=== PATIENT | female | born 1995 | race Caucasian/White ===

== ENCOUNTER 2025-05-27 09:11 | Inpatient (IN) | payer BC, OTHER ==
[~2025-05-27] VITALS: Ht 157.5 cm; Wt 66.4 kg
--- NOTE | 2025-05-27 10:22 | ED.PDOC ---
GI ASSESSMENT HPI Comments This is a 29 year-old female who presents to the ED via wheelchair with a chief complaint of N/V as of 1500 yesterday. Per sister, patient drank vodka X2 days ago and has been N/V since, with an inability to ambulate or communicate properly. Patient has no further complaints at this time and otherwise denies further associated symptoms of abdominal pain, diarrhea, fever, or chills. Chief Complaint: Nausea/Vomiting Time Seen by MD: 09:43 Reviewed Notes: Medications, Allergies Allergies: Coded Allergies: NO KNOWN ALLERGIES (Unverified , 05/27/25) Information Source: Patient, Relative (Sibling) Mode of Arrival: Wheelchair Timing: Days Duration: Since onset Severity: Moderate Recent: Ingestion of ETOH Associated sign and symptoms: Nausea, Vomiting Past Medical History PAST MEDICAL HISTORY: Denies Surgical History: Tubal Ligation PUSHER RUNNER History: No Pertinent PUSHER RUNNER History Family History Family History: Unknown Social History Smoker: Non-Smoker Alcohol: Heavy Drugs: Denies Drug Use Lives In: Home Constitutional: denies: chills, diaphoresis, fatigue, fever, malaise, sweats, weakness, others EENTM: denies: blurred vision, double vision, ear bleeding, ear discharge, ear drainage, ear pain, ear ringing, eye pain, eye redness, hearing loss, mouth pain, mouth swelling, nasal discharge, nose bleeding, nose congestion, nose pain, photophobia, tearing, throat pain, throat swelling, voice changes, others Respiratory: denies: cough, hemoptysis, orthopnea, SOB at rest, shortness of breath, SOB with excertion, stridor, wheezing, others Cardiovascular: denies: chest pain, dizzy spells, diaphoresis, Dyspnea on exertion, edema, irregular heart beat, left arm pain, lightheadedness, palpitat ions, PND, syncope, others Gastrointestinal: reports: nausea, vomiting; denies: abdomen distended, abdominal pain, blood streaked bowels, constipated, diarrhea, dysphagia, difficulty swallowing, hematemesis, melena, poor appetite, poor fluid intake, rectal bleeding, rectal pain, others Genitourinary: denies: abnormal vagina bleeding, burning, dyspareunia, dysuria, flank pain, frequency, hematuria, incontinence, pain, , vagina discharge, urgency, others Neurological: denies: dizziness, fainting, headache, left sided numbness, left sided weakness, numbness, paresthesia, pre-existing deficit, right sided numbness, right sided weakness, seizure, speech problems, tingling, tremors, weakness, others Musculoskeletal: denies: back pain, gout, joint pain, joint swelling, muscle pain, muscle stiffness, neck pain, others Integumetry: denies: bruises, change in color, change in hair/nails, dryness, laceration, lesions, lumps, rash, wounds, others Allergic/Immunocompromised: denies: Difficulty Healing, Frequent Infections, Hives, Itching, others Hematologic/Lymphatic: denies: anemia, blood clots, easy bleeding, easy bruising, swollen glands, others Endocrine: denies: excessive hunger, excessive sweating, excessive thirst, excessive urination, flushing, intolerance to cold, intolerance to heat, unexplained weight gain, unexplained weight loss, others Psychiatric: denies: anxiety, bipolar disorder, depression, hopeless, panic disorder, schizophrenia, sleepless, suicidal, others All Other Systems: Reviewed and Negative Physical Exam General Appearance: Moderate Distress HEENT: Normal ENT Inspection, Pharynx Normal, TMs Normal Neck: Full Range of Motion, Non-Tender, Normal, Normal Inspection Respiratory: Chest Non-Tender, Lungs Clear, No Accessory Muscle Use, No Respiratory Distress, Normal Breath Sounds Cardiovascular: No Edema, No JVD, No Murmur, No Gallop, Normal Peripheral Pulses, Regular Rate/Rhythm Breast Exam: Deferred Gastrointestinal: No Organomegaly, Non Tender, No Pulsatile Mass, Normal Bowel Sounds, Soft Genitalia: Deferred Pelvic: Deferred Rectal: Deferred Extremities: No calf tenderness, Normal capillary refill, Normal inspection, Normal range of motion, Non-tender, No pedal edema Musculoskeletal : Apperance: Normal Neurologic: Alert, field nurse II-XII nml as Tested, No Motor Deficits, Normal Affect, Normal Mood, No Sensory Deficits Cerebellar Function: Normal Reflexes: Normal Skin: Dry, Normal Color, Warm Peripheral Pulses: 3+ Radial (R), 3+ Radial (L) Lymphatic: No Adenopathy Was a procedure done? Was a procedure done?: No GI differential Dx Differential Diagnosis: Constipation, Diverticular disease, Esophagitis, Gastritis/PUD, Gastroenteritis, Inflammatory BD, UTI, Dehydration, Food Poisoning, Bacterial, Parasitic, Viral X-Ray, Labs, Meds, VS Vital Signs Date Time Temp Pulse Resp B/P (MAP) Pulse Ox O2 Delivery O2 Flow Rate FiO2 05/27/25 11:08 98.0 96 18 102/62 (75) 96 98.0 05/27/25 11:08 96 18 96 Room Air 05/27/25 09:13 98.4 98 16 107/79 100 98.4 Lab Test 05/27/25 11:30 Range/Units White Blood Count 19.1 H 4.4-10.8 10^3/uL Red Blood Count 5.20 4.0-5.20 10^6/uL Hemoglobin 15.8 12.2-16.2 g/dL Hematocrit 46.3 H 36.0-46.0 % Mean Corpuscular Volume 89.0 80.0-100.0 fL Mean Corpuscular Hemoglobin 30.3 28.0-32.0 pg Mean Corpuscular Hemoglobin Concent 34.0 32.0-36.0 g/dL Red Cell Distribution Width 14.0 11.8-14.3 % Platelet Count 466 H 140-450 10^3/uL Mean Platelet Volume 7.2 6.9-10.8 fL Neutrophils (%) (Auto) 90.9 H 37.0-80.0 % Lymphocytes (%) (Auto) 3.5 L 10.0-50.0 % Monocytes (%) (Auto) 5.3 0.0-12.0 % Eosinophils (%) (Auto) 0.0 0.0-7.0 % Basophils (%) (Auto) 0.3 0.0-2.0 % Neutrophils # (Auto) 17.3 H 1.6-8.6 10 ^3/uL Lymphocytes # (Auto) 0.7 0.4-5.4 10 ^3/uL Monocytes # (Auto) 1.0 0-1.3 10 ^3/uL Eosinophils # (Auto) 0 0-0.8 10 ^3/uL Basophils # (Auto) 0.1 0-0.2 10 ^3/uL Nucleated Red Blood Cells 0.0 % Plasma/Serum Blood Alcohol Pending Current Medications Medications (Trade) Dose Ordered Sig/Ag Route Start Time Stop Time Status Last Admin Sodium Chloride 1,000 ml @ 1,000 mls/hr Q1H ONCE IV 05/27/25 11:30 10/26/25 12:29 05/27/25 11:21 Ondansetron HCl (Zofran) 4 mg ONCE ONCE IV 05/27/25 11:30 05/27/25 11:31 DC 05/27/25 11:21 Patient alert. Came in because of generalized weakness. Vitals stable. Patient comfortable. WBC elevated pain Establish intravenous access. Was given fluids. Was given Zofran. Possible sepsis. Possible urosepsis. Was given Rocephin. Was given Flagyl. CT of the abdomen. Explained to the patient. Continue monitoring. Time of 1ST Reevaluation: 11:22 Reevaluation 1ST: Unchanged Patient Education/Counseling: Diagnosis, Treatment Family Education/Counseling: No Family Present SEPSIS Sepsis Screen Date sepsis recognized/suspect: May 27, 2025 Time Sepsis recognized/suspect: 914 Recent Procedure: No On Antibiotic Therapy: No Respiratory Rate >20: No Heart Rate >90: Yes Temp<36 C (96.8 F) or >38.3 C: No SBP <90 or MAP <65 mmHG: No New Acute Mental Status Change: No Is the patient on CPAP, BIPAP,: No Physician Orders Sodium Chloride 0.9% (05/27/25 11:30) Blood Alcohol (05/27/25 11:24) Vital Signs Date Time Temp Pulse Resp B/P (MAP) Pulse Ox O2 Delivery O2 Flow Rate FiO2 05/27/25 11:08 98.0 96 18 102/62 (75) 96 98.0 05/27/25 11:08 96 18 96 Room Air 05/27/25 09:13 98.4 98 16 107/79 100 98.4 Laboratory Tests Test 05/27/25 11:30 White Blood Count 19.1 10^3/uL (4.4-10.8) H Medications Medications Dose Ordered Sig/Ag Route Start Time Stop Time Status Last Admin Dose Admin Ondansetron HCl 4 mg ONCE ONCE IV 05/27/25 11:30 05/27/25 11:31 DC 05/27/25 11:21 Sodium Chloride 1,000 ml @ 1,000 mls/hr Q1H ONCE IV 05/27/25 11:30 05/27/25 12:29 05/27/25 11:21 Departure 1 Departure Time of Disposition: 12:04 Impression: Primary Impression: Sepsis, unspecified organism Qualified Codes: A41.9 - Sepsis, unspecified organism Disposition: ADMITTED INPATIENT Admit to: Med Surg Condition: Guarded Critical Care Note Critical Care Time?: Yes (90 min-critical care time only) Stability Stability form required: No Heart Score Heart Score: Heart Score Response (Comments) Value History N/A 0 EKG N/A 0 Age N/A 0 Risk Factors N/A 0 Troponin N/A 0 Total 0 I personally scribed for KATRIN MEJÍA MD ([email or web address]) on 05/27/25 at 10:22. Electronically submitted by Haydee Butts ([facility]). KATRIN MEJÍA MD May 27, 2025 10:22
[2025-05-27] MEDS: ONDANSETRON HCL 4 MG/2 ML VIAL IV ONE (11:21)
[2025-05-27] MEDS: SODIUM CHLORIDE 0.9% 1,000 ML IV ONE ×2 (11:21→15:12)
[2025-05-27 11:55] LABS: Hematocrit 46.3 % (36.0-46.0); Hemoglobin 15.8 g/dL (12.2-16.2); Mean Corpuscular Hemoglobin 30.3 pg (28.0-32.0); Mean Corpuscular Volume 89.0 fL (80.0-100.0); Nucleated Red Blood Cells % 0.0 %
[2025-05-27 12:16] LABS: Chloride 100 mmol/L (98-107); Potassium 3.6 mmol/L (3.5-5.1); Sodium 139 mmol/L (136-145)
[2025-05-27 12:17] LABS: Anion Gap 16 (5-15); Calcium 9.9 mg/dL (8.7-10.4); Carbon Dioxide 23 mmol/L (20-31)
[2025-05-27 12:22] LABS: BUN/Creatinine Ratio 7.5 (10.0-20.0); Glucose 85 mg/dL (74-106)
[2025-05-27 12:24] LABS: Blood Urea Nitrogen 6 mg/dL (9-23)
--- NOTE | 2025-05-27 13:04 | DVH ---
CT CT AB PEL WO CON-NO ORAL OR IV INDICATION: colitis EXAM DATE: 05/27/2025 12:21 PM COMPARISON: None RADIATION DOSE: CTDIvol: 6 mGy, DLP: 289 mGy*cm PROCEDURE: Helical CT images were obtained of the abdomen and pelvis without IV contrast Sagittal and coronal reconstructions are provided. ORAL CONTRAST: None. ADDITIONAL IMAGES / REFORMATS: None All C T scans at this medical facility are performed using dose modulation techniques as appropriate to a p erformed exam including the following: Automated exposure control was utilized; adjustment of the MA and/or KV according to patient size; and use of iterative reconstruction technique. FINDINGS: LUNG BASE: Normal. LIVER: Normal. GALLBLADDER AND BILIARY TREE: Gallstones are noted in the gallbladder. No intra- or extrahepatic bili teto ductal dilation. PANCREAS: Normal. SPLEEN: Normal. BOWEL: Normal. Normal appendix. ADRENALS: Normal. KIDNEYS AND URETER: Normal. BLADDER: Normal. REPRODUCTIVE ORGANS: Normal. LYMPH NODES:No lymphadenopathy. PERITONEUM: No ascites or free air. No other fluid collection. VESSELS: Scattered atherosclerotic calcifications are noted. RETROPERITONEUM: Normal. ABDOMINAL WALL: Normal. BONES: Scattered osseous degenerative changes are noted. IMPRESSION: No acute intraabdominal abnormality.
[2025-05-27] MEDS ORDERED: ACETAMINOPHEN 325 MG TAB PO PRN (14:15)
--- NOTE | 2025-05-27 14:21 | DVHHPRES ---
History of Present Illness Resident Creating Document: EILEEN AGUILAR History of Present Illness Latrice Pool is a 29-year-old female patient who presents to the ED with chief complaint of nausea nonbloody vomiting with clear emesis, sore throat, abdominal pain in epigastrium and right upper quadrant, fever, chills, clamminess in dull achy epigastric chest pain, symptoms started 48 hours before her admission, prompting her visit to ED due to inability of eating for this amount of time. Patient reports the day her symptoms started she did drink two mixed drinks with vodka. Patient also reports to be on Zepbound for the past six months, she has lost intentionally 45 lb with treatment. Denies any other associated symptom. Past medical history: Preeclampsia, obesity on Zepbound Surgical history: Bilateral tubal ligation Family history: Heart disease in mother, grandmothers and aunts breast cancer. Social history: Lives in [place] with family (next of kin has been). Occasional alcohol. Denies current tobacco, alcohol and other drug abuse Allergies: Denies Home medication: Zepbound Patient seen and examined at bedside. Currently has no new complaints. Patient admitted to telemetry for further evaluation Past Medical History Per HPI Past Surgical History Per HPI Family History Per HPI Past Social History Per HPI Review of Systems Review of Systems Per HPI Allergies: Coded Allergies: NO KNOWN ALLERGIES (Unverified , 05/27/25) Exam Vital Signs Vital Signs Date Time Temp Pulse Resp B/P (MAP) Pulse Ox O2 Delivery O2 Flow Rate FiO2 05/27/25 13:47 98.2 58 16 97/68 (78) 95 98.2 05/27/25 11:08 Room Air Exam Patient lying in bed, in no acute distress General: Lucid, afebrile, mucosae are moist Cardiovascular: Normal S1 and S2. No murmurs, gallops or rubs Respiratory: Normal ventilation mechanics. Clear lung sounds on auscultation Abdomen: Soft, diffuse tenderness, exquisite on epigastrium and right upper quadrant, negative Li's sign and McBurney sign, no organomegaly, normal bowel sounds MSK/skin: Mobilizes 4 limbs. Skin is dry and warm Neurological: Oriented in 3 spheres. No motor no sensitive deficits. Pupils are isocoric and reactive Labs/Xrays Labs Test 05/27/25 12:20 05/27/25 11:30 Range/Units Lactic Acid Level 1.1 0.4-2.0 mmol/L White Blood Count 19.1 H 4.4-10.8 10^3/uL Red Blood Count 5.20 4.0-5.20 10^6/uL Hemoglobin 15.8 12.2-16.2 g/dL Hematocrit 46.3 H 36.0-46.0 % Mean Corpuscular Volume 89.0 80.0-100.0 fL Mean Corpuscular Hemoglobin 30.3 28.0-32.0 pg Mean Corpuscular Hemoglobin Concent 34.0 32.0-36.0 g/dL Red Cell Distribution Width 14.0 11.8-14.3 % Platelet Count 466 H 140-450 10^3/uL Mean Platelet Volume 7.2 6.9-10.8 fL Neutrophils (%) (Auto) 90.9 H 37.0-80.0 % Lymphocytes (%) (Auto) 3.5 L 10.0-50.0 % Monocytes (%) (Auto) 5.3 0.0-12.0 % Eosinophils (%) (Auto) 0.0 0.0-7.0 % Basophils (%) (Auto) 0.3 0.0-2.0 % Neutrophils # (Auto) 17.3 H 1.6-8.6 10 ^3/uL Lymphocytes # (Auto) 0.7 0.4-5.4 10 ^3/uL Monocytes # (Auto) 1.0 0-1.3 10 ^3/uL Eosinophils # (Auto) 0 0-0.8 10 ^3/uL Basophils # (Auto) 0.1 0-0.2 10 ^3/uL Nucleated Red Blood Cells 0.0 % Sodium Level 139 136-145 mmol/L Potassium Level 3.6 3.5-5.1 mmol/L Chloride Level 100 98-107 mmol/L Carbon Dioxide Level 23 20-31 mmol/L Anion Gap 16 H 5-15 Blood Urea Nitrogen 6 L 9-23 mg/dL Creatinine 0.80 0.550-1.02 mg/dL Glomerular Filtration Rate Calc 101 >90 mL/min BUN/Creatinine Ratio 7.5 L 10.0-20.0 Serum Glucose 85 74-106 mg/dL Calcium Level 9.9 8.7-10.4 mg/dL Plasma/Serum Blood Alcohol < 3.0 <10 mg/dL SEPSIS Sepsis Screen Date sepsis recognized/suspect: May 27, 2025 Time Sepsis recognized/suspect: 914 Recent Procedure: No On Antibiotic Therapy: No Respiratory Rate >20: No Heart Rate >90: Yes Temp<36 C (96.8 F) or >38.3 C: No SBP <90 or MAP <65 mmHG: No New Acute Mental Status Change: No Is the patient on CPAP, BIPAP,: No Physician Orders Blood Culture (05/27/25 12:05) Ct Ab Pel Wo Con-No Oral Or Iv (05/27/25 12:05) Urinalysis (05/27/25 12:07) Chest Portable (05/27/25 13:56) Admit (05/27/25 14:10) Code Status (05/27/25 14:10) Acetaminophen Tablet (Tylenol Tablet) (05/27/25 14:15) Ondansetron Hcl (Zofran) (05/27/25 14:15) Complete Blood Count (05/28/25 04:00) Comprehensive Metabolic Panel (05/28/25 04:00) Npo (Nothing By Mouth) Diet (05/27/25 Dinner) Echo 2d Mode Cardiac Dop (05/27/25 14:10) Morphine Sulfate Injection (05/27/25 14:15) Enoxaparin Sodium (Lovenox) (05/28/25 10:00) Oxygen By Nasal Cannula (05/27/25 14:10) Stat Ekg For Chest Pain (05/27/25 14:10) Notify Md Of Changes From Base (05/27/25 14:10) Long Chain Dyeing Machine Operator For 24 Hours (05/27/25 14:10) Emergency Dysrhythmia Protocol (05/27/25 14:10) Rhythm Strips Once Every Shift (05/27/25 14:10) Sodium Chloride 0.9% (05/27/25 14:15) Sodium Chloride 0.9% (05/27/25 14:15) Ceftriaxone 1gm/50ml (Rocephin) (05/28/25 09:00) Metronidazole 500mg/100ml (Flagyl 500mg/ (05/27/25 22:00) Hepatic Panel (05/27/25 14:10) Acute Hepatitis Panel (05/27/25 14:10) Vitamin D, 25-Hydroxy (05/27/25 14:10) Vitamin B12 (05/27/25 14:10) Urinalysis (05/27/25 14:10) Thyroid Stimulating Hormone (05/27/25 14:10) PTPTT (05/27/25 14:10) Phosphorus (05/27/25 14:10) Magnesium (05/27/25 14:10) Lipid Panel (05/27/25 14:10) Lipase (05/27/25 14:10) Lactic Acid W/ Reflex Order (05/27/25 14:10) Hemoglobin A1c (05/27/25 14:10) Drug Screen (05/27/25 14:10) C-Reactive Protein (05/27/25 14:10) Ammonia (05/27/25 14:10) Beta-Hydroxybutyrate (05/27/25 14:10) Beta Hcg, Quantitative (05/27/25 14:10) Abg W/ Co-Ox (05/27/25 14:10) Urine Bacterial Culture (05/27/25 14:17) Respiratory Culture W/ Gs (05/27/25 14:17) Abdomen Limited (05/27/25 14:10) Vital Signs Date Time Temp Pulse Resp B/P (MAP) Pulse Ox O2 Delivery O2 Flow Rate FiO2 05/27/25 13:47 98.2 58 16 97/68 (78) 95 98.2 05/27/25 11:08 98.0 96 18 102/62 (75) 96 98.0 05/27/25 11:08 96 18 96 Room Air 05/27/25 09:13 98.4 98 16 107/79 100 98.4 Laboratory Tests Test 05/27/25 11:30 05/27/25 12:20 White Blood Count 19.1 10^3/uL (4.4-10.8) H Lactic Acid Level 1.1 mmol/L (0.4-2.0) Medications Medications Dose Ordered Sig/Ag Route Start Time Stop Time Status Last Admin Dose Admin Ceftriaxone Sodium 50 ml @ 100 mls/hr ONCE ONCE IV 05/27/25 12:15 05/27/25 12:44 DC 05/27/25 12:25 100 MLS/HR Metronidazole 100 ml @ 100 mls/hr ONCE ONCE IV 05/27/25 12:15 05/27/25 13:14 DC 05/27/25 13:21 100 MLS/HR Ondansetron HCl 4 mg ONCE ONCE IV 05/27/25 11:30 05/27/25 11:31 DC 05/27/25 11:21 4 MG Sodium Chloride 1,000 ml @ 1,000 mls/hr Q1H ONCE IV 05/27/25 11:30 05/27/25 12:29 DC 05/27/25 11:21 1,000 MLS/HR Assessment/Plan Assessment/Plan ASSESSMENT Symptomatic cholelithiasis Rule out cholecystitis Sepsis secondary to questionable cholecystitis versus UTI Complicated UTI Polysubstance abuse (cocaine and marijuana) Respiratory alkalosis with metabolic acidosis with increased anion gap secondary to ketosis Rule out acute coronary syndrome Status post bilateral tubal ligation PLAN Patient currently under empiric IV antibiotic (ceftriaxone and metronidazole) Ordered panculture Abdomen and pelvis CT shows no acute findings. Abdominal ultrasound shows choledocholithiasis Consulted rn surgical to evaluate surgical therapy patient Ordered HIDA scan Patient currently NPO, indicated IV D5W due to ketosis UDS shows positive cocaine and marijuana. Counseled strongly on cessation of polysubstance abuse for above 16 minutes. Troponin x1 negative, chest pain is noncardiac. Ordered EKG and echocardiogram. Goals of care discussed with patient for over 18 minutes: Full code status Discussed plan with Dr. Clark, patient and nurses: Patient admitted to telemetry. Currently under empiric IV antibiotic, IV fluids, awaiting results of complementary workup. Consulted mass spectrometry specialist to evaluate surgical therapy, awaiting HIDA scan. Plan discussed with: Patient, Other (Nurses) My Orders Orders - EILEEN AGUILAR RESIDENT Procedure Category Date Status Time Admit ADMIT 05/27/25 Transmitted 14:10 Code Status CODE 05/27/25 Transmitted 14:10 Acetaminophen Tablet PHA 05/27/25 Logged (Tylenol Tablet) 14:15 Ondansetron Hcl PHA 05/27/25 Logged (Zofran) 14:15 Complete Blood Count LAB 05/28/25 Verified 04:00 Comprehensive LAB 05/28/25 Verified Metabolic Panel 04:00 Npo (Nothing By DIET 05/27/25 Transmitted Mouth) Diet Dinner Echo 2d Mode Cardiac US 05/27/25 Logged DOP 14:10 Morphine Sulfate PHA 05/27/25 Logged Injection 14:15 Enoxaparin Sodium PHA 05/28/25 Logged (Lovenox) 10:00 Oxygen By Nasal RT 05/27/25 Transmitted Cannula 14:10 Stat Ekg For Chest CHANELL 05/27/25 In Process Pain 14:10 Notify Of Changes CHANELL 05/27/25 In Process From Base 14:10 Long Chain Dyeing Machine Operator For [facility] 05/27/25 In Process 24 Hours 14:10 Emergency Dysrhythmia CHANELL 05/27/25 In Process Protocol 14:10 Rhythm Strips Once CHANELL 05/27/25 In Process Every Shift 14:10 Sodium Chloride 0.9% PHA 05/27/25 Logged 14:15 Sodium Chloride 0.9% PHA 05/27/25 Logged 14:15 Ceftriaxone 1gm/50ml PHA 05/28/25 Logged (Rocephin) 09:00 Metronidazole PHA 05/27/25 Logged 500mg/100ml (Flagyl 22:00 Hepatic Panel LAB 05/27/25 Logged 14:10 Acute Hepatitis Panel LAB 05/27/25 Logged 14:10 Vitamin D, 25-Hydroxy LAB 05/27/25 Logged 14:10 Vitamin B12 LAB 05/27/25 Logged 14:10 Urinalysis LAB 05/27/25 Logged 14:10 Thyroid Stimulating LAB 05/27/25 Logged Hormone 14:10 PTPTT LAB 05/27/25 Logged 14:10 Phosphorus LAB 05/27/25 Logged 14:10 Magnesium LAB 05/27/25 Logged 14:10 Lipid Panel LAB 05/27/25 Logged 14:10 Lipase LAB 05/27/25 Logged 14:10 Lactic Acid W/ Reflex LAB 05/27/25 Logged Order 14:10 Hemoglobin A1c LAB 05/27/25 Logged 14:10 Drug Screen LAB 05/27/25 Logged 14:10 C-Reactive Protein LAB 05/27/25 Logged 14:10 Ammonia LAB 05/27/25 Logged 14:10 Beta-Hydroxybutyrate LAB 05/27/25 Logged 14:10 Beta Hcg, Quantitative LAB 05/27/25 Logged 14:10 Abg W/ Co-Ox RT 05/27/25 Logged 14:10 Urine Bacterial BRIGID 05/27/25 Logged Culture 14:17 Respiratory Culture BRIGID 05/27/25 Logged W/ Gs 14:17 Abdomen Limited 05/27/25 Logged 14:10 Date of Service: May 27, 2025 Billing Provider: HI CLARK MD Common Visit Codes: [id number] INP/OBS CARE (HIGH) Secondary Visit Codes: [id number] CARE PLAN 30 MINUTES EILEEN AGUILAR RESIDENT May 27, 2025 14:21
--- NOTE | 2025-05-27 14:29 | DVH ---
CHEST RADIOGRAPH Indication: sob Technique: Single frontal view of the chest was obtained Comparison: None FINDINGS: Lines and Tubes: None Lungs: No focal consolidation. Pleura: No effusion. No pneumothorax. Cardiomediastinal contours: Unremarkable Bones: No acute osseous abnormality. IMPRESSION: 1. No acute cardiopulmonary disease.
--- NOTE | 2025-05-27 15:06 | DVH ---
INDICATION: N/V, evaluate gallbladder and liver TECHNIQUE: Multiple real-time sonographic images of the abdomen were obtained. COMPARISON: None FINDINGS: The liver is homogenous in echogenicity. The liver measures 14.6 cm. No intrahepatic bilia ry ductal dilatation is noted. The gallbladder wall measures 0.21 cm and is unremarkable. Gallstones noted in the gallbladder.. T he common duct measures 0.51 cm and is unremarkable. No pericholecystic fluid is noted. Negative son ographic geiger's sign is elicited. There appears to be a KALEIGH sign The right kidney measures 11.2 cm. No hydronephrosis. The pancreas is not well visualized due to obscuration from bowel gas. The visualized portions of the IVC and aorta are grossly unremarkable. IMPRESSION: 1. Cholelithiasis with a positive KALEIGH sign. Negative sonographic geiger's sign. Correlate surgical hi story for possible cholecystectomy.
[2025-05-27 15:08] LABS: INR 1.03 (0.9-1.15); Partial Thromboplastin Time 27.3 SEC (24.5-34.5); Prothrombin Time 10.9 sec (9.3-11.8)
[2025-05-27 15:28] LABS: Alanine Aminotransferase 13.0 U/L (7-40); Alkaline Phosphatase 72.0 U/L (46-116)
[2025-05-27 15:29] LABS: Albumin 5.2 g/dL (3.2-4.8); Bilirubin, Direct 0.4 mg/dL (<0.3); Bilirubin, Total 1.3 mg/dL (0.2-1.0); Total Protein 8.8 g/dL (5.7-8.2)
[2025-05-27] MEDS: ONDANSETRON HCL 4 MG/2 ML VIAL IV PRN (15:30)
[2025-05-27 15:34] VITALS: BP 108/66; PULSE 91; RESP 16; TEMP 98; O2SAT 100
[2025-05-27 15:35] LABS: Base Excess -3.5 mmol/L (-2.0-3.0)
[2025-05-27] MEDS ORDERED: TIRZ7.5I2 SC (15:42)
[2025-05-27 16:21] LABS: Magnesium 2.2 mg/dL (1.6-2.6); Triglycerides 67.0 mg/dL (< 150)
[2025-05-27 16:23] LABS: Cholesterol 175.0 mg/dL (< 200)
[2025-05-27] MEDS: SODIUM CHLORIDE 0.9% 1,000 ML IV SCH (16:35)
[2025-05-27] MEDS: PANTOPRAZOLE 40 MG/10 ML VIAL INJ IV ONE (16:38)
[2025-05-27 16:43] LABS: HDL Cholesterol 64.0 mg/dL (40-59)
[2025-05-27 16:57] LABS: Lipase 26.0 U/L (12-53)
[2025-05-27 17:28] LABS: Cannabinoid Screen, Urine Pos (NEGATIVE)
[2025-05-27 17:29] LABS: Amphetamine Screen, Urine Neg (NEGATIVE); Barbiturate Scree,Urine Neg (NEGATIVE); Benzodiazephine Screen, Urine Neg (NEGATIVE); Cocaine Screen, Urine Pos (NEGATIVE); Opiate Scree,Urine Neg (NEGATIVE); Phencyclidine Screen, Urine Neg (NEGATIVE)
[2025-05-27 17:30] LABS: Urine Protein, UAD 1+ (Negative)
--- NOTE | 2025-05-27 17:42 | DVHINCON2 ---
Date of service: May 27, 2025 History of Present Illness 29-year-old female who drank excessive amounts of vodka on Wednesday admitted secondary to abdominal pain and nausea. Patient denies any fevers or chills. Past Medical History None Past Surgical History Tubal ligation Family History: Diabetes mellitus G8 MOTHER Thyroid disease G8 MOTHER Family History Noncontributory Social History Excessive alcohol use. Denies tobacco but smokes marijuana. Allergies: Coded Allergies: NO KNOWN ALLERGIES (Unverified , 05/27/25) Home Meds Reported Medications Tirzepatide (Zepbound) 7.5 Mg/0.5 Ml Inj, 8.5 MG SC, INJ 05/27/25 Current Medications Current Medications Medications (Trade) Dose Ordered Sig/Ag Route PRN Reason Start Time Stop Time Status Last Admin Acetaminophen (Tylenol Tablet) 325 mg Q4HP PRN PO MILD PAIN (1-3 PAIN SCALE) 05/27/25 14:15 Ondansetron HCl (Zofran) 4 mg Q4HP PRN IV NAUSEA / VOMITING 05/27/25 14:15 05/27/25 15:30 Morphine Sulfate 2 mg Q4HPRN PRN IV SEVERE PAIN (7-10 PAIN SCALE) 05/27/25 14:15 Enoxaparin Sodium (Lovenox) 40 mg DAILY SC 05/28/25 10:00 Sodium Chloride 1,000 ml @ 60 mls/hr [id number] IV 05/27/25 14:15 05/27/25 16:35 Ceftriaxone Sodium 50 ml @ 100 mls/hr DAILY@09 IV 05/28/25 09:00 Metronidazole 100 ml @ 100 mls/hr Q8HR IV 05/27/25 22:00 Pantoprazole Sodium (Protonix) 40 mg BID IV 05/27/25 22:00 Vital Signs Vital Signs Date Time Temp Pulse Resp B/P (MAP) Pulse Ox O2 Delivery O2 Flow Rate FiO2 05/27/25 15:34 98.0 91 16 108/66 (80) 100 98.0 05/27/25 11:08 Room Air Physical Exam GEN: Age-appropriate female in no acute distress. Alert. HEENT: Normocephalic atraumatic. Moist mucous membranes. Anicteric sclerae. CV: RRR Respiratory: CTAB ABD: Soft. Very minimal epigastric tenderness to palpation without guarding or rebound. CT of the abdomen and pelvis: Unremarkable except for gallstones. Abdominal ultrasound: Gallstones with normal common bile duct. Negative sonographic Li's sign. Labs/Diagnostic Data Labs Test 05/27/25 17:04 05/27/25 15:21 05/27/25 15:05 05/27/25 14:10 Range/Units Urine Color Yellow Yellow Urine Clarity Turbid H Clear Urine pH 6.0 5.0-9.0 Urine Specific [place] 1.029 1.001-1.035 Urine Protein 1+ H Negative Urine Ketones 4+ H Negative Urine Blood Negative Negative /uL Urine Nitrite Negative Negative Urine Bilirubin Negative Negative Urine Urobilinogen Normal Negative mg/dL Urine Leukocyte Esterase 3+ Negative /uL Urine RBC 3 0 - 4 /hpf Urine Microscopic WBC 57 H 0-5 /HPF Urine Squamous Epithelial Cells Few <5 /hpf Urine Bacteria Few H None Seen /hpf Urine Hyaline Casts Few 0 - 2 /lpf Urine Mucus Few None Seen Urine Glucose Normal Normal mg/dL Urine Opiates Screen Neg NEGATIVE Urine Fentanyl Screen Neg NEGATIVE Urine Barbiturates Screen Neg NEGATIVE Urine Phencyclidine Screen Neg NEGATIVE Urine Amphetamines Screen Neg NEGATIVE Urine Benzodiazepines Screen Neg NEGATIVE Urine Cocaine Screen Pos NEGATIVE Urine Cannabinoids Screen Pos NEGATIVE Blood Gas Specimen Type Arterial Blood Gas Sample Site Left radial Blood Gas Patient Temperature 37.0 Arterial Blood Date Drawn [id number] Arterial Blood pH 7.521 H 7.350-7.450 Arterial Blood Partial Pressure CO2 21.1 L 32.0-45.0 mmHg Arterial Blood Partial Pressure O2 103.6 83.0-108.0 mmHg Arterial Blood HCO3 16.9 L 21.0-28.0 mmol/L Arterial Blood Oxygen Saturation 98.2 H 94.0-98.0 % Arterial Blood Base Excess -3.5 L -2.0-3.0 mmol/L Arterial Blood Oxyhemoglobin 97.0 94.0-98.0 % Arterial Blood Carboxyhemoglobin 0.6 0.5-1.5 % Arterial Blood Methemoglobin 0.6 0.0-1.5 % Hi Test Yes Blood Gas Total Hemoglobin 14.90 12.0-16.0 g/dL Blood Gas Modality Room air FiO2 % 21.0 Lactic Acid Level 1.0 0.4-2.0 mmol/L Ammonia < 10 L 11-32 umol/L Troponin I High Sensitivity < 3 L </=34 ng/L Prothrombin Time 10.9 9.3-11.8 sec Prothrombin Time INR 1.03 0.9-1.15 Activated Partial Thromboplast Time 27.3 24.5-34.5 SEC Test 05/27/25 11:30 Range/Units White Blood Count 19.1 H 4.4-10.8 10^3/uL Red Blood Count 5.20 4.0-5.20 10^6/uL Hemoglobin 15.8 12.2-16.2 g/dL Hematocrit 46.3 H 36.0-46.0 % Mean Corpuscular Volume 89.0 80.0-100.0 fL Mean Corpuscular Hemoglobin 30.3 28.0-32.0 pg Mean Corpuscular Hemoglobin Concent 34.0 32.0-36.0 g/dL Red Cell Distribution Width 14.0 11.8-14.3 % Platelet Count 466 H 140-450 10^3/uL Mean Platelet Volume 7.2 6.9-10.8 fL Neutrophils (%) (Auto) 90.9 H 37.0-80.0 % Lymphocytes (%) (Auto) 3.5 L 10.0-50.0 % Monocytes (%) (Auto) 5.3 0.0-12.0 % Eosinophils (%) (Auto) 0.0 0.0-7.0 % Basophils (%) (Auto) 0.3 0.0-2.0 % Neutrophils # (Auto) 17.3 H 1.6-8.6 10 ^3/uL Lymphocytes # (Auto) 0.7 0.4-5.4 10 ^3/uL Monocytes # (Auto) 1.0 0-1.3 10 ^3/uL Eosinophils # (Auto) 0 0-0.8 10 ^3/uL Basophils # (Auto) 0.1 0-0.2 10 ^3/uL Nucleated Red Blood Cells 0.0 % Sodium Level 139 136-145 mmol/L Potassium Level 3.6 3.5-5.1 mmol/L Chloride Level 100 98-107 mmol/L Carbon Dioxide Level 23 20-31 mmol/L Anion Gap 16 H 5-15 Blood Urea Nitrogen 6 L 9-23 mg/dL Creatinine 0.80 0.550-1.02 mg/dL Glomerular Filtration Rate Calc 101 >90 mL/min BUN/Creatinine Ratio 7.5 L 10.0-20.0 Serum Glucose 85 74-106 mg/dL Hemoglobin A1c 4.8 <5.7 % A1C Calcium Level 9.9 8.7-10.4 mg/dL Phosphorus Level 3.2 2.4-5.1 mg/dL Magnesium Level 2.2 1.6-2.6 mg/dL Total Bilirubin 1.3 H 0.2-1.0 mg/dL Direct Bilirubin 0.4 H <0.3 mg/dL Aspartate Amino Transferase (AST) 23 13-40 U/L Alanine Aminotransferase (ALT) 13 7-40 U/L Alkaline Phosphatase 72 46-116 U/L C-Reactive Protein High Sensitivity 2.85 H <1.0 mg/dL Total Protein 8.8 H 5.7-8.2 g/dL Albumin 5.2 H 3.2-4.8 g/dL Triglycerides Level 67 < 150 mg/dL Cholesterol Level 175 < 200 mg/dL LDL Cholesterol 105 H < 100 mg/dL HDL Cholesterol 64 H 40-59 mg/dL Lipase 26 12-53 U/L Thyroid Stimulating Hormone (TSH) 0.41 L 0.55-4.78 uIU/mL Beta HCG, Quantitative 2.8 1.5-4.2 mIU/mL Plasma/Serum Blood Alcohol < 3.0 <10 mg/dL Assessment 1. Abdominal pain likely secondary to alcohol abuse. 2. Cholelithiasis without acute cholecystitis Plan/Recommendation 1. HIDA scan. If it is negative patient may be discharged home for possible elective outpatient surgery Plan discussed with: Patient KAITLYN PALMER MD May 27, 2025 17:42
[2025-05-27] MEDS: MORPHINE SULFATE INJ 2 MG/ml SYRG IV PRN (17:58)
[2025-05-27 18:00] VITALS: BP 106/57; PULSE 96; RESP 18; O2SAT 96
[2025-05-27 19:00] VITALS: PULSE 89; RESP 17; O2SAT 96
[2025-05-27 20:00] VITALS: PULSE 89; RESP 16; O2SAT 99
[2025-05-27] MEDS: PANTOPRAZOLE 40 MG/10 ML VIAL INJ IV SCH (20:54)
[2025-05-27 21:00] VITALS: BP 90/50; PULSE 96; RESP 18; TEMP 98.6; O2SAT 96
[2025-05-27] MEDS: D5W/SOD CHLO 0.9% 1,000 ML IV SCH (22:08)
[2025-05-28 04:34] LABS: Hematocrit 36.8 % (36.0-46.0); Hemoglobin 12.6 g/dL (12.2-16.2); Mean Corpuscular Hemoglobin 30.3 pg (28.0-32.0); Mean Corpuscular Volume 88.5 fL (80.0-100.0); Nucleated Red Blood Cells % 0.1 %
[2025-05-28 04:52] LABS: Albumin 3.7 g/dL (3.2-4.8); Alkaline Phosphatase 49 U/L (46-116); Anion Gap 14 (5-15); BUN/Creatinine Ratio 9.7 (10.0-20.0); Bilirubin, Total 1.0 mg/dL (0.2-1.0); Carbon Dioxide 20 mmol/L (20-31); Glucose 78 mg/dL (74-106); Sodium 141 mmol/L (136-145); Total Protein 6.3 g/dL (5.7-8.2)
[2025-05-28 04:59] LABS: Alanine Aminotransferase 9 U/L (7-40); Blood Urea Nitrogen 6 mg/dL (9-23); Calcium 8.4 mg/dL (8.7-10.4); Chloride 107 mmol/L (98-107); Potassium 2.8 mmol/L (3.5-5.1)
[2025-05-28] MEDS: POTASSIUM CHL 20 Meq TABLET PO ONE (05:51)
[2025-05-28] MEDS: POTASSIUM CHL 20MEQ/100ML 100 ML IV ONE (06:00)
[2025-05-28] MEDS: HYDROmorphone HCL 2 MG/ML VL/or syr IV ONE (06:50)
[2025-05-28 08:00] VITALS: TEMP 98.4
[2025-05-28 10:00] VITALS: O2SAT 100
[2025-05-28] MEDS ORDERED: ENOXAPARIN SOD 40 MG/0.4 ML SYRINGE SC SCH (10:00)
[2025-05-28 10:39] LABS: Free T4 (Free Thyroxine) 1.15 ng/dL (0.89-1.76)
[2025-05-28 11:07] LABS: Hepatitis B Surface Antigen Negative (Negative); Hepatitis C Antibody Negative (Negative)
--- NOTE | 2025-05-28 11:45 | DVH ---
Procedure: NM NM HIDA SCAN Exam Date: 05/28/2025 10:31 AM Clinical History: gallstones Comparison Study: None Nuclear Medicine Hepatobiliary Scan. Technique: Following the intravenous administration of 4.4 mCi of technetium 99m labeled Choletec multiple plana r abdominal planar images were obtained in anterior projection in 5 minute intervals for30 minutes . Right lateral images were obtained at 31 minutes after injection. Findings: The liver appears grossly normal in size. There is no abnormal persistence of the cardiac or blood po ol activity. There is prompt visualization of the gallbladder and excretion of activity into the smal l bowel. Impression: Unremarkable hepatobiliary study without evidence of acute cholecystitis.
[2025-05-28 11:46] VITALS: BP 98/61; PULSE 71; RESP 16
--- NOTE | 2025-05-28 13:53 | DVHDS2 ---
Discharge Summary Date of Admission May 27, 2025 at 14:10 Date of Discharge: May 28, 2025 Labs/Diagnostic Data: Laboratory Results Test 05/28/25 03:48 05/27/25 17:04 05/27/25 15:21 05/27/25 15:05 White Blood Count 10.1 10^3/uL (4.4-10.8) Red Blood Count 4.16 10^6/uL (4.0-5.20) Hemoglobin 12.6 g/dL (12.2-16.2) Hematocrit 36.8 % (36.0-46.0) Mean Corpuscular Volume 88.5 fL (80.0-100.0) Mean Corpuscular Hemoglobin 30.3 pg (28.0-32.0) Mean Corpuscular Hemoglobin Concent 34.2 g/dL (32.0-36.0) Red Cell Distribution Width 13.8 % (11.8-14.3) Platelet Count 344 10^3/uL (140-450) Mean Platelet Volume 7.1 fL (6.9-10.8) Neutrophils (%) (Auto) 66.2 % (37.0-80.0) Lymphocytes (%) (Auto) 22.5 % (10.0-50.0) Monocytes (%) (Auto) 10.6 % (0.0-12.0) Eosinophils (%) (Auto) 0.3 % (0.0-7.0) Basophils (%) (Auto) 0.4 % (0.0-2.0) Neutrophils # (Auto) 6.7 10 ^3/uL (1.6-8.6) Lymphocytes # (Auto) 2.3 10 ^3/uL (0.4-5.4) Monocytes # (Auto) 1.1 10 ^3/uL (0-1.3) Eosinophils # (Auto) 0 10 ^3/uL (0-0.8) Basophils # (Auto) 0 10 ^3/uL (0-0.2) Nucleated Red Blood Cells 0.1 % Sodium Level 141 mmol/L (136-145) Potassium Level 2.8 mmol/L (3.5-5.1) Chloride Level 107 mmol/L (98-107) Carbon Dioxide Level 20 mmol/L (20-31) Anion Gap 14 (5-15) Blood Urea Nitrogen 6 mg/dL (9-23) Creatinine 0.62 mg/dL (0.550-1.02) Glomerular Filtration Rate Calc 122 mL/min (>90) BUN/Creatinine Ratio 9.7 (10.0-20.0) Serum Glucose 78 mg/dL (74-106) Calcium Level 8.4 mg/dL (8.7-10.4) Total Bilirubin 1.0 mg/dL (0.2-1.0) Aspartate Amino Transferase (AST) 13 U/L (13-40) Alanine Aminotransferase (ALT) 9 U/L (7-40) Alkaline Phosphatase 49 U/L (46-116) Total Protein 6.3 g/dL (5.7-8.2) Albumin 3.7 g/dL (3.2-4.8) Free Thyroxine (T4) Calculated 1.15 ng/dL (0.89-1.76) Total Triiodothyronine (TT3) 0.82 ng/mL (0.60-1.81) Urine Color Yellow (Yellow) Urine Clarity Turbid (Clear) Urine pH 6.0 (5.0-9.0) Urine Specific [place] 1.029 (1.001-1.035) Urine Protein 1+ (Negative) Urine Ketones 4+ (Negative) Urine Blood Negative /uL (Negative) Urine Nitrite Negative (Negative) Urine Bilirubin Negative (Negative) Urine Urobilinogen Normal mg/dL (Negative) Urine Leukocyte Esterase 3+ /uL (Negative) Urine RBC 3 /hpf (0 - 4) Urine Microscopic WBC 57 /HPF (0-5) Urine Squamous Epithelial Cells Few /hpf (<5) Urine Bacteria Few /hpf (None Seen) Urine Hyaline Casts Few /lpf (0 - 2) Urine Mucus Few (None Seen) Urine Glucose Normal mg/dL (Normal) Urine Opiates Screen Neg (NEGATIVE) Urine Fentanyl Screen Neg (NEGATIVE) Urine Barbiturates Screen Neg (NEGATIVE) Urine Phencyclidine Screen Neg (NEGATIVE) Urine Amphetamines Screen Neg (NEGATIVE) Urine Benzodiazepines Screen Neg (NEGATIVE) Urine Cocaine Screen Pos (NEGATIVE) Urine Cannabinoids Screen Pos (NEGATIVE) Blood Gas Specimen Type Arterial Blood Gas Sample Site Left radial Blood Gas Patient Temperature 37.0 Arterial Blood Date Drawn [id number] Arterial Blood pH 7.521 (7.350-7.450) Arterial Blood Partial Pressure CO2 21.1 mmHg (32.0-45.0) Arterial Blood Partial Pressure O2 103.6 mmHg (83.0-108.0) Arterial Blood HCO3 16.9 mmol/L (21.0-28.0) Arterial Blood Oxygen Saturation 98.2 % (94.0-98.0) Arterial Blood Base Excess -3.5 mmol/L (-2.0-3.0) Arterial Blood Oxyhemoglobin 97.0 % (94.0-98.0) Arterial Blood Carboxyhemoglobin 0.6 % (0.5-1.5) Arterial Blood Methemoglobin 0.6 % (0.0-1.5) Hi Test Yes Blood Gas Total Hemoglobin 14.90 g/dL (12.0-16.0) Blood Gas Modality Room air FiO2 % 21.0 Lactic Acid Level 1.0 mmol/L (0.4-2.0) Ammonia < 10 umol/L (11-32) Troponin I High Sensitivity < 3 ng/L (</=34) Test 05/27/25 14:10 05/27/25 11:30 Prothrombin Time 10.9 sec (9.3-11.8) Prothrombin Time INR 1.03 (0.9-1.15) Activated Partial Thromboplast Time 27.3 SEC (24.5-34.5) Hemoglobin A1c 4.8 % A1C (<5.7) Phosphorus Level 3.2 mg/dL (2.4-5.1) Magnesium Level 2.2 mg/dL (1.6-2.6) Direct Bilirubin 0.4 mg/dL (<0.3) C-Reactive Protein High Sensitivity 2.85 mg/dL (<1.0) Triglycerides Level 67 mg/dL (< 150) Cholesterol Level 175 mg/dL (< 200) LDL Cholesterol 105 mg/dL (< 100) HDL Cholesterol 64 mg/dL (40-59) Lipase 26 U/L (12-53) Vitamin B12 Level 765 pg/mL (211-911) Vitamin D 25-Hydroxy 26.5 ng/mL (30.0-100) Thyroid Stimulating Hormone (TSH) 0.41 uIU/mL (0.55-4.78) Beta HCG, Quantitative 2.8 mIU/mL (1.5-4.2) Plasma/Serum Blood Alcohol < 3.0 mg/dL (<10) Hepatitis A IgM Antibody Negative Hepatitis B Surface Antigen Negative (Negative) Hepatitis B Core IgM Antibody Negative (Negative) Hepatitis C Antibody Negative (Negative) Other Laboratory Tests 05/28/25 03:48 Brief Hx & Hospital Course: 29 F with no sig PMH on zepbound admitted for intractible vomiting and abd pain. labs wnl, CT showed cholelithiasis w/o cholecystitis, same with US. taking canabis, drank 4 shots of vodka 2 day [employer]. not daily drinker, denied other drug and tobacco use. stopped using zepbound 1 month [employer]. also found to have ketosis w/o acidosis. was given iv fluid and pain management, started on abx. no urinary symptoms. patient was seen by surgtery, pending HIDA scan. patient would like to leave AMA. discussed plan and risk and she understood. Condition at Discharge: Stable Final Diagnosis/Problems List intractible abd pain vomiting cholelithiasis w/o cholecystitis canabis cyclic vomiting? ketosis w/o acidosis dehydration hypokalemia leukocytosis Discharge Disposition: AMA Discharge Instruct/Medications Miscellaneous Medications Tirzepatide (Zepbound), 8.5 MG SC, (Reported) Discharge Statement: "Patient was advised to return to the ER or call 911 if any headaches, dizziness, shortness of breath, chest pain, abdominal pain, bleeding, fevers, or worsening of medical condition. Patient was counseled about treatment plan, medications, possible side effects, patientverbalized understanding. All questions were answered to the best of my ability. This discharge took greater then 30 minutes in planning, reviewing documentation, counseling the patient, and discussing with other team members." ASSESSMENT ASSESSMENT Assessment Date of Service: May 28, 2025 Billing Provider: HERMELINDO JEAN MD Common Visit Codes: 04656-SHF/OBS DISCH DAY >30min HERMELINDO JEAN MD May 28, 2025 13:53
== END 2025-05-28 13:05 | disposition left against medical advice (07) | DRG 872 ==
LOC: ER 09:11 → OVERFLOW 14:10
PROVIDERS: ADMIT Student in an Organized Health Care Education/Training Program; ATTEND Student in an Organized Health Care Education/Training Program
DX: A41.9 Sepsis, unspecified organism (principal); N39.0 Urinary tract infection, site not specified; E87.3 Alkalosis; K80.20 Calculus of gallbladder without cholecystitis without obstruction; F14.10 Cocaine abuse, uncomplicated; F12.10 Cannabis abuse, uncomplicated; E88.89 Other specified metabolic disorders; E86.0 Dehydration; E87.6 Hypokalemia; Z53.29 Procedure and treatment not carried out because of patient's decision for other reasons; Z98.51 Tubal ligation status; Z82.49 Family history of ischemic heart disease and other diseases of the circulatory system; Z80.3 Family history of malignant neoplasm of breast; Z83.3 Family history of diabetes mellitus
CPT/HCPCS: 36415; 36600; 71045; 74176; 76705; 78226; 80048; 80053; 80061; 80074; 80076; 80307; 80320; 81001; 82010; 82140; 82306; 82607; 82805; 83036; 83605; 83690; 83735; 84100; 84439; 84443; 84480; 84484; 84702; 85025; 85610; 85730; 86141; 87040; 87086; G0378; J2405; J2470; J3480; J3490